=== PATIENT | male | born 1980 | race African-American/Black ===

== ENCOUNTER 2022-08-13 10:48 | Emergency (ER) | payer MEDICARE, SELFPAY ==
--- NOTE | ~2022-08-13 | XR_ITS ---
XR shoulder RT min 2V 08/13/2022 11:54 INDICATION: Right shoulder pain PROCEDURE: 5 views right shoulder COMPARISON: No prior studies for comparison. FINDINGS: Fracture, dislocation or subluxation is not identified. The soft tissues appear within norm al limits. No foreign bodies are identified. IMPRESSION: 1: NO ACUTE BONE OR JOINT ABNORMALITY IDENTIFIED. Reviewed, dictated and finalized at location L.
[2022-08-13 11:08] VITALS: BP 189/103; PULSE 77; RESP 18; TEMP 36.5; O2SAT 100
--- NOTE | 2022-08-13 12:14 | ED.UPPEXIN ---
HPI - Extremity Injury (Upper) General Chief Complaint: Extremity Injury, Upper Stated Complaint: right shoulder pain Time Seen by Provider: 08/13/22 11:42 History of Present Illness HPI narrative: 42-year-old male reports for evaluation of right shoulder pain x3 days. Patient reports he woke up 3 days ago with pain to his right shoulder that has not gotten better. 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 States he was evaluated by specialist years ago for a rotator cuff injury. States he never had surgery for this problem has not followed up recently. Denies fever, body aches, chills, paresthesias, neck pain, back pain, chest pain or shortness of breath Related Data Allergies Allergy/AdvReac Type Severity Reaction Status Date / Time No Known Allergies Allergy Verified 08/13/22 11:30 Review of Systems Review of Systems: CONSTITUTIONAL: Denies fever, chills EYES: Denies visual changes, redness, or discharge. ENT: Denies rhinorrhea, congestion, sore throat, or otalgia. CARDIOVASCULAR: Denies chest pain, palpitations, or edema. RESPIRATORY: Denies cough or dyspnea. GASTROINTESTINAL: Denies abdominal pain, nausea, vomiting, or diarrhea. GENITOURINARY: Denies dysuria or hematuria. SKIN: Denies rash or itching. MUSCULOSKELETAL: See HPI NEUROLOGIC: Denies headache, numbness, dizziness, or weakness. PSYCHIATRIC: Denies anxiety or depression. Exam Narrative: GENERAL: Well-appearing, in no acute distress. Patient resting comfortably in exam bed. He is pleasant and conversational. HEAD: Normocephalic NECK: Supple. No cervical midline tenderness, step-offs or deformities. Full range of motion of neck. CHEST: No respiratory distress. Clear to auscultation, no adventitious breath sounds. HEART: Regular rate and rhythm. No murmur heard. Normal peripheral pulses. EXTREMITIES: RUE: Tenderness to the glenohumeral joint and trapezius. No warmth or erythema to shoulder. No tenderness to clavicle, AC joint or proximal humerus. Limited flexion, extension and abduction. Positive empty can and lift off tests. Sensation intact throughout. Patient able to oppose thumb and give a thumbs up. 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 SKIN: Warm, dry, no rash. NEURO: No focal deficits. Alert and oriented x3. PSYCH: Normal mood and affect. Course Vital Signs Vital signs: Vital Signs Temperature 97.7 F 08/13/22 11:08 Pulse Rate 77 08/13/22 11:08 Respiratory Rate 18 08/13/22 11:08 Blood Pressure 189/103 H 08/13/22 11:08 Pulse Oximetry 100 08/13/22 11:08 Oxygen Delivery Room Air 08/13/22 11:08 Temperature 97.7 F 08/13/22 11:08 Pulse Rate 83 08/13/22 12:27 Respiratory Rate 18 08/13/22 12:27 Blood Pressure 180/120 H 08/13/22 12:27 Pulse Oximetry 98 08/13/22 12:27 Oxygen Delivery Room Air 08/13/22 11:08 MDM - Extremity Injury (Upper) MDM Narrative Medical decision making narrative: 42-year-old male with a history of rotator cuff injury reports for evaluation of right shoulder pain x3 days. Exam reveals tenderness to the glenohumeral joint and trapezius with limited range of motion of shoulder. No paresthesias or neck pain. Patient neurovascularly intact. X-ray reveals no acute osseous abnormality. Imaging discussed with patient. This is likely related to his rotator cuff injury for which she has been evaluated in the past. Patient received ibuprofen and Flexeril in the ED with improvement in pain. Ibuprofen and Flexeril sent to pharmacy. He has a sling in his truck he can use for discomfort. Pt's blood pressure was found to be elevated in the ED of up to 180/120. He reports he ran out of his BP medications 1-2 weeks ago and has not refilled them. He is currently traveling from [place] and plans to head home tomorrow after stopping by his sister's house in [place]. He states he has blood pressure medications at his
[2022-08-13] MEDS: IBUPROFEN 600 MG TABLET PO (12:26)
[2022-08-13] MEDS: CYCLOBENZAPRINE HCL 10 MG TABLET PO (12:26)
[2022-08-13 12:27] VITALS: BP 180/120; PULSE 83; RESP 18; O2SAT 98
[2022-08-13] MEDS: hydrALAZINE HCL 50 MG TABLET PO (13:13)
[2022-08-13] MEDS: NIFEdipine 30 MG TAB.ER.24 60 MG PO (13:13)
[2022-08-13 14:08] VITALS: BP 157/107; PULSE 63; RESP 18; O2SAT 100
== END 2022-08-13 14:28 | disposition home or self-care (01) ==
PROVIDERS: Emergency Provider Physician Assistant; PCP Emergency Medicine
DX: M25.511 Pain in right shoulder (principal); I10 Essential (primary) hypertension; T46.5X6A Underdosing of other antihypertensive drugs, initial encounter
CPT/HCPCS: 73030; 99283; A9270